=== PATIENT | female | born 1945 | race Hispanic/Latino ===

== ENCOUNTER 2018-04-06 03:31 | Inpatient (IN) | payer MEDICARE, OTHER ==
[~2018-04-06] VITALS: Ht 160 cm; Wt 65.8 kg
[2018-04-06] VITALS (7 sets, daily range): BP systolic 103–127; BP diastolic 54–59
[~2018-04-06 03:31] MED LIST: ASPIR-LOW81 MG PO; ENALAPRIL MALEA10 MG PO; GLUCOPHAGE XL500 MG PO; LEVOTHYROXINE88 MCG PO; MELOXICAM15 MG PO; TRIAMCINOLONE A15 G1; VASOTEC5 MG PO; Z.0.GLIPIZIDE5 MG PO; Z.0.LEVOTHROID75 MCG PO; Z.0.SIMVASTATIN10 MG PO; [UNRECOGNIZED DRUG - OTHER]
[2018-04-06] MEDS ORDERED: ACETAMINOPHEN 1000 MG/100 ML IV STA (03:48)
[2018-04-06] MEDS ORDERED: ASPIRIN 81 MG CHEW TAB PO ONE (04:00)
[2018-04-06] MEDS ORDERED: SODIUM CHLORIDE 0.9% 1000ML 1,000 ML IV ONE (04:00)
[2018-04-06 04:13] LABS: BASOPHILS % 0.1 % (0.0-1.0); EOSINOPHILS % 0.1 % (0.0-6.0); HEMATOCRIT 42.6 % (34.2-44.1); HEMOGLOBIN 14.5 g/dL (12.0-16.0); LYMPHOCYTES # (AUTO) 0.8 (1.0-3.2); LYMPHOCYTES % 9.2 % (18.0-39.1); MEAN CORPUSCULAR HEMOGLOBIN 29.1 pg (28-32); MEAN CORPUSCULAR VOLUME 85.5 fL (81-99); MONOCYTES # (AUTO) 0.2 (0.2-0.8); MONOCYTES % 2.7 % (4.4-11.3); NEUTROPHILS # (AUTO) 7.2 (2.1-6.9); NEUTROPHILS % 87.4 % (38.7-80.0); PLATELET COUNT 234 x10e3/uL (140-360); RED BLOOD COUNT 4.98 x10e6/uL (3.6-5.1); RED CELL DISTRIBUTION WIDTH 13.6 % (11.7-14.4)
[2018-04-06] MEDS ORDERED: ATORVASTATIN CA20 MG PO (04:32)
[2018-04-06] MEDS ORDERED: JANUVIA25 MG PO (04:32)
[2018-04-06 04:35] LABS: ALBUMIN 3.9 g/dL (3.5-5.0); ALBUMIN/GLOBULIN RATIO 0.9 (0.8-2.0); ANION GAP 19.5 mmol/L (8-16); CALCIUM 9.2 mg/dL (8.4-10.2); CREATININE, SERUM 0.93 mg/dL (0.57-1.11); POTASSIUM 3.5 mmol/L (3.5-5.1)
[2018-04-06] MEDS ORDERED: AMBROXOL PO (04:35)
[2018-04-06] MEDS ORDERED: BUSCAPINA PO (04:35)
[2018-04-06 04:43] LABS: CREATINE KINASE MB 1.8 ng/mL (0-5.0)
[2018-04-06] MEDS ORDERED: SODIUM CHLORIDE 0.9% 50ML 50 ML ONE (05:17)
[2018-04-06] MEDS ORDERED: IOPAMIDOL 370 MG/ML 200 ML INFUS..BTL INJ ONE (05:18)
[2018-04-06] MEDS ORDERED: ONDANSETRON HCL INJ 2MG/ML 2ML 2 MG/ML VIAL IV STA (05:29)
[2018-04-06] MEDS ORDERED: ONDANSETRON HCL INJ 2MG/ML 2ML 2 MG/ML VIAL ONE (05:29)
--- NOTE | 2018-04-06 06:24 | Diagnostic Imaging Report ---
EXAM: CT Abdomen and Pelvis WITH contrast INDICATION: Pain COMPARISON: None. TECHNIQUE: Abdomen and Pelvis was scanned utilizing a multidetector helical scanner after administration of IV contrast. Coronal and sagittal reformations were obtained. IV CONTRAST: 100 mL Isovue-370 COMPLICATIONS: None RADIATION DOSE: Total DLP:447 mGy*cm Estimated effective dose: (DLP x 0.015 x size factor) mSv CTDIvol has been reviewed. It is below the limits set by the Radiation Protocol Committee (RPC). Appropriate CT dose reduction techniques were utilized. FINDINGS: Abdomen: Lung Bases: Atelectasis. Solid Organs: Cholecystectomy clips. Dilated common duct up to 17 mm only slightly more prominent than 02/22/2011 study. Solid organs otherwise unremarkable. Upper GI Tract: Small hiatal hernia. Vascularity: Mild aortic vascular calcifications with no aneurysm in the aorta. Lymph Nodes: No suspicious adenopathy. Other: None. Pelvis: Bladder: Unremarkable. Other: Uterus absent. Colon: Extensive diverticulosis sigmoid colon with mild wall thickening. Bones: Degenerative changes spine. IMPRESSION: 1. Significant diverticulosis sigmoid colon. Areas of wall thickening may represent chronic inflammation with mild superimposed acute diverticulitis possible. 2. Prominent common duct statistically reservoir phenomenon and. Slightly more conspicuous than 2011 exam. Clinical/laboratory correlation for biliary obstruction recommended. Signed by: Dr. Magen Farmer MD on 04/06/2018 6:21 AM
--- NOTE | 2018-04-06 06:50 | NUR ---
ASSUMED CARE AT THIS TIME. PATIENT AWAKE AND ALERT SITTING IN BED. RESP EVEN AND UNLABORED. SKIN WARM AND DRY. NO SIGNS OF ACUTE DISTRESS NOTED AT THIS TIME. DENIES ANY C/O AT THIS TIME.
[2018-04-06 07:06] LABS: BILIRUBIN,URINE NEGATIVE (NEGATIVE); CLARITY,URINE CLEAR (CLEAR); COLOR,URINE YELLOW (YELLOW); KETONES,URINE NEGATIVE (NEGATIVE); LEUKOCYTE ESTERASE ,URINE NEGATIVE (NEGATIVE); NITRITE,URINE NEGATIVE (NEGATIVE); PROTEIN,URINE DIPSTICK NEGATIVE (NEGATIVE); URINE UROBILINOGEN 1 mg/dL (0.2 - 1)
[2018-04-06 07:07] LABS: BACTERIA,URINE FEW /HPF; EPITHELIAL CELLS,URINE FEW /LPF
[2018-04-06] MEDS ORDERED: DEXTROSE 50% SYRINGE 50 ML IV PRN (07:15)
[2018-04-06] MEDS ORDERED: ONDANSETRON HCL INJ 2MG/ML 2ML 2 MG/ML VIAL IV PRN (07:15)
[2018-04-06] MEDS ORDERED: HYDROMORPHONE 1MG/1ML INJ IV PRN (07:15)
[2018-04-06] MEDS ORDERED: METRONIDAZOLE 500MG/NS 100ML 100 ML IV SCH (07:15)
--- OUTSIDE RECORDS SUMMARY | 2018-04-06 07:19 | XMS REPORT ---
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 Allergies, Adverse Reactions, Alerts This patient has no known allergies or adverse reactions. Medications This patient has no known medications. Results Test Description Test Time Test Comments Text Results Atomic Results Result Comments CT ABDOMEN/PELVIS W 2018-04-06 06:18:00 [place] [id number] Patient Name: RENE BONILLA MR #: [id number] : 1945 Age/Sex: 72/F Req #: [id number] Adm Physician: Ordered by: ERENDIRA CODY MD Report #: [id number] Location: ER Room/Bed: Procedure: [id number] CT/CT ABDOMEN/PELVIS W Exam Date: Exam Time: REPORT STATUS: Signed EXAM: CT Abdomen and Pelvis WITH contrast INDICATION: Pain COMPARISON: None. TECHNIQUE: Abdomen and Pelvis was scanned utilizing a multidetector helical scanner after administration of IV contrast. Coronal and sagittal reformations were obtained. IV CONTRAST: 100 mL Isovue- 370 COMPLICATIONS: None RADIATION DOSE: Total DLP:447 mGy*cm Estimated effective dose: (DLP x 0.015 x size factor) mSv CTDIvol has been reviewed. It is below the limits set by the Radiation Protocol Committee (RPC). Appropriate CT dose reduction techniques were utilized. FINDINGS: Abdomen: Lung Bases: Atelectasis. Solid Organs: Cholecystectomy clips. Dilated common duct up to 17 mm only slightly more prominent than 02/22/2011 study. Solid organs otherwise unremarkable. Upper GI Tract: Small hiatal hernia. Vascularity: Mild aortic vascular calcifications with no aneurysm in the aorta. Lymph Nodes: No suspicious adenopathy. Other: None. Pelvis: Bladder: Unremarkable. Other: Uterus absent. Colon: Extensive diverticulosis sigmoid colon with mild wall thickening. Bones: Degenerative changes spine. IMPRESSION: 1. Significant diverticulosis sigmoid colon. Areas of wall thickening may represent chronic inflammation with mild superimposed acute diverticulitis possible. 2. Prominent common duct statistically reservoir phenomenon and. Slightly more conspicuous than 2011 exam. Clinical/laboratory correlation for biliary obstruction recommended. Signed by: Dr. Magen Jeronimo MD on 04/06/2018 6:21 AM Dictated By: MAGEN JERONIMO MD 0 Transcribed By: RIAZ on 04/06/18620 COPY TO: ERENDIRA CODY MD
[2018-04-06] MEDS ORDERED: INSULIN REGULAR, HUMAN 100 UNIT/1 ML 3ML VIAL SQ SCH (07:30)
[2018-04-06] MEDS: PIPER-TAZ 3.375 GM / NS 50ML IV SCH ×3 (07:50→22:01)
--- NOTE | 2018-04-06 08:01 | NUR ---
DR HURLEY AT BEDSIDE FOR PATIENT EVAL AND DISCUSSING THE CURRENT PLAN OF CARE WITH PATIENT AND FAMILY,VERBALIZED UNDERSTANDING. NO SIGNS OF ACUTE DISTRESS NOTED AT THIS TIME.
--- NOTE | 2018-04-06 08:13 | NUR ---
RCD PT FROM ER BY STRETCHER PT IS ALERT AND ORIENTED VITALS CHECKED PT RESTING ON BED NO SIGNS OF ANY DISTRESS NOTED ADMISSION ASSESSMENT AND HISTORY AND FAMILY HISTORY DONE NO C/O PAIN ,FEVER [address] RACHEL CARMONA PATENT FAMILY AT BED SIDE INSTRUCTED PT AND FAMILY REGARDING HOSPITAL POLICY AND ROUTINE BED LOW AND LOCKED CALL LIGHT IN REACH
[2018-04-06] MEDS: SODIUM CHLORIDE 0.9% 1000ML 1,000 ML IV SCH ×2 (08:15→13:48)
--- NOTE | 2018-04-06 09:26 | Consultation ---
DATE OF CONSULTATION: April 06, 2018 HISTORY OF PRESENT ILLNESS: This is a 72-year-old lady who has history of diabetes and hypertension, presented to the hospital because of abdominal pain, nausea, and vomiting beginning yesterday. The patient denies any bleeding along with this problem. Her workup revealed that she has pancreatitis with amylase of 266 and lipase of 87. Her liver enzymes were also elevated with bilirubin 1.3, AST 456, and ALT of 213. She had cholecystectomy long time ago, and she had a CAT scan of the abdomen and pelvis last night on admission, which showed diverticulosis of the sigmoid colon and also dilated bile duct up to about 17 mm which is more prominent as compared to way back in 11/2010. However, CAT scan did not show any evidence of pancreatitis. Her other medical problem is significant for history of diabetes and also history of hypertension and hypercholesterolemia. CURRENT MEDICATIONS AT HOME: Including , Vasotec, glipizide, levothyroxine, metformin, and Januvia. ALLERGIES: NONE. SOCIAL HISTORY: No alcohol abuse. FAMILY HISTORY: Noncontributory. REVIEW OF SYSTEMS: Denies any chest pain or shortness of breath. Denies any dysphagia or odynophagia. Denies any dysuria or hematuria. Again, no syncopal episode except complaint of some headache. PHYSICAL EXAMINATION: GENERAL: Patient is awake, lying in bed, appears to be stable and not in any acute distress at this point. VITAL SIGNS: Afebrile currently with normal vital signs. HEAD, EYES, EARS, NOSE, AND THROAT: Normocephalic and atraumatic. Sclerae are anicteric. NECK: Supple. HEART: Sounds regular. LUNGS: Clear. ABDOMEN: Soft. No distention at this point. Tenderness mainly in the epigastric area. There is no rebound or mass. EXTREMITIES: There is no clubbing. LAB VALUES: CBC was okay and chemistry as mentioned before, BUN is 21, creatinine of 0.93. Bilirubin 1.3, AST 456, ALT of 213, alk phos is 186, amylase 266, lipase is 687. IMPRESSION 1. Acute pancreatitis, suspect the possibility of common bile duct stones. 2. History of diabetes. 3. History of hypertension. RECOMMENDATION: To keep n.p.o. at this point. Obtain an MRCP and we will probably proceed with ERCP for further evaluation after the pancreatitis resolves, possibly tomorrow. Follow labs. Job#: [id number] TY cc:MD DICK HERNANDEZ MD
[2018-04-06] MEDS ORDERED: MORPHINE SULFATE INJ 4 MG/ML INJ 1ML IV PRN (09:45)
[2018-04-06] MEDS ORDERED: INSULIN GLARGINE 100 UNITS/ML VIAL SQ NR (10:00)
[2018-04-06] MEDS: ACETAMINOPHEN 325 MG TAB PO PRN ×3 (10:07→20:53)
--- NOTE | 2018-04-06 11:06 | History and Physical ---
PRIMARY CARE PROVIDER: Dr. John Argueta. CONSULTANTS: 1. Dr. Dimitri Sandoval. 2. Dr. J Luis Hdz. CHIEF COMPLAINT: One to two days of abdominal pain, nausea, vomiting, and diarrhea. HISTORY: Patient is a 72-year-old female with previous cholecystectomy, who came to the hospital because of increasing abdominal pain, nausea and vomiting associated with diarrhea profoundly for the past 24 to 48 hours. Patient came to the hospital. She is not in any distress. WBC was 8.22. Chemistry panel, sodium was 131 and amylase and lipase elevated at 256 and 687 respectively. Her liver enzymes also elevated with total bilirubin of 1.3, AST is 456, ALT is 213. Blood pressure was stable at systolic 146/72. She does have a fever of 101, pulse rate elevated at 126. The patient is otherwise stable. She has been dehydrated. She is not in any distress. Consultation with Dr. Sandoval and Dr. Hdz obtained. The patient did not have any sick exposure and did not have any unusual diet or any traveling previously. The patient did not recall anything unusual. No loss of consciousness. No fall. PAST MEDICAL HISTORY: Diabetes type 2 on oral hypoglycemic medication, hypertension, dyslipidemia, hypothyroidism. PAST SURGICAL HISTORY: Cholecystectomy. SOCIAL HISTORY: Patient does not smoke or use alcohol. No recreational drugs. ALLERGIES: PHENAZOPYRIDINE. HOME MEDICATIONS: Lipitor, enalapril, glipizide, levothyroxine, metformin, and Januvia. REVIEW OF SYSTEMS: As mentioned above. PHYSICAL EXAMINATION VITAL SIGNS: Temperature is 100, blood pressure 146/72, pulse rate is 126, respirations 17. GENERAL: The patient seems comfortable. She is not in any distress. HEENT: Normocephalic, atraumatic. Sclerae anicteric. NECK: Supple grossly. PULMONARY: Diminished breath sounds bilaterally without any wheezing or rales. CARDIOVASCULAR: S1, S2. Tachycardia. No gross murmur, gallop, or rub. ABDOMEN: Soft, non-distention, nontender. No guarding. Positive bowel sounds. EXTREMITIES: No cyanosis, edema or clubbing. NEUROLOGIC: There is no focal deficit. LABORATORY: Sodium 131, potassium 3.5, chloride 93, bicarb 22, BUN is 21, creatinine 0.9. Glucose is 283. Total bilirubin is 1.3, AST 456, ALT is 213, alkaline phosphatase is still 186. Amylase is 206, lipase is 687 with albumin of 3.9. Total protein is 8.1. Troponin is 0.02. WBC is 8.2, hemoglobin 14.5, hematocrit 42.6 and platelets 234,000. Urinalysis. Glucose 1+, blood is trace, leukocyte esterase negative, bacteria is few. IMAGING: Abdominal and pelvic CT scan that was done with contrast. Findings as follows: Significant diverticulosis in sigmoid colon. Areas of wall thickening may represent chronic inflammation and mild superimposed acute diverticulitis possible. Prominent common bile duct specifically reservoir phenomenon and slightly more conspicuous than 2011 exam. Recommendation for further tests. IMPRESSION 1. Sepsis without shock. 2. Acute hepatitis, most likely nonviral. 3. Acute gastroenteritis may contribute to the above. 4. Acute mild diverticulitis as per CT scan. 5. Fever, dehydration, hyponatremia secondary to nausea, vomiting and dehydration. 6. Dilated common bile duct, etiology unclear, further workup needed. PLAN 1. Covering antibiotics including Zosyn and Flagyl initiated already. 2. Consult consultants as mentioned. 3. IV fluid. 4. Antiemetic. 5. MRCP. 6. Blood culture. 7. We will repeat lab work. Currently, the patient is on IV fluid at 150 mL normal saline per hour. We will watch the patient's blood pressure. 8. We will place the patient on insulin sliding scale coverage. Hold off on some of the patient's home medications at this time. P.r.n. blood pressure medication. We will follow up on the recommendation from the consultants. Job#: [id number] TY
--- NOTE | 2018-04-06 11:30 | NUR ---
PT GOING FOR ERCP ON TOMORROW CONSENT SIGNED BY PATIENT AND NOTIFIED THE MANAGER ANIMATION TO THE PROCEDURE
[2018-04-06] MEDS: INSULIN REGULAR, HUMAN 100 UNIT/1 ML 3ML VIAL SQ SCH ×2 (12:00→17:28)
--- NOTE | 2018-04-06 12:28 | NUR ---
PT WENT FOR PROCEDURE IN SAFE CONDITION
[2018-04-06] MEDS: METRONIDAZOLE 500MG/NS 100ML 100 ML IV SCH ×2 (14:00→20:52)
--- NOTE | 2018-04-06 14:07 | Diagnostic Imaging Report ---
EXAM: Magnetic Resonance Cholangiopancreatography (M.R.C.P.) INDICATION: ^EVAL FOR CBD OBSTRUCTION COMPARISON: CT abdomen and pelvis 04/06/2018. 02/22/2011. TECHNIQUE: Multiplanar, multisequence MRCP was performed, with sequences including coronal turbo spin-echo T1-weighted scans, [facility] MRCP scans, coronal spin, coronal MPR 2, SMRCP 3D HR, [facility] MRCP PIZARRO. IV Contrast: None Oral Contrast: None Medications: None COMPLICATIONS: None FINDINGS: LOWER THORAX: Unremarkable. HEPATOBILIARY: No focal hepatic lesions. Common bile duct is dilated measuring 1.5 cm in diameter. This gradually tapers to the pancreatic head. There is however an abrupt narrowing near the ampulla of Vater. GALLBLADDER: There are blooming artifacts at the gallbladder fossa, consistent with cholecystectomy clips. SPLEEN: No splenomegaly. PANCREAS: No focal masses or ductal dilatation. ADRENALS: No adrenal nodules KIDNEYS/URETERS: No hydronephrosis. No cystic or solid mass lesions. No stones. GI TRACT: No abnormal distention, wall thickening, or evidence of bowel obstruction. LYMPH NODES: No lymphadenopathy. VESSELS: Unremarkable. PERITONEUM / RETROPERITONEUM: No free air or fluid. BONES: Unremarkable. SOFT TISSUES: Unremarkable. IMPRESSION: Common bile duct dilatation up to 1.5 cm in diameter. There is mild focal abrupt narrowing at the ampulla of Vater. Recommend endoscopy. Signed by: Dr. Live Mosley M.D. on 04/06/2018 2:04 PM
--- NOTE | 2018-04-06 19:12 | NUR ---
PT RESTING ON BED BED SIDE REPORT GIVEN TO ONCOMING NURSE
--- NOTE | 2018-04-06 19:56 | NUR ---
PT IS RESTING IN BED WITH FAMILY AT BEDSIDE. NO RESPIRATORY DISTRESS NOTED. BED IN THE LOWEST POSITION, LOCKED, AND CALL LIGHT WITHIN REACH. WILL CONTINUE TO MONITOR.
[2018-04-06] MEDS: INSULIN GLARGINE 100 UNITS/ML VIAL SQ SCH (20:52)
[2018-04-07] VITALS (8 sets, daily range): BP systolic 96–151; BP diastolic 50–67
[2018-04-07] MEDS: SODIUM CHLORIDE 0.9% 1000ML 1,000 ML IV SCH ×3 (01:32→10:00)
[2018-04-07 04:59] LABS: BASOPHILS % 0.2 % (0.0-1.0); EOSINOPHILS % 0.1 % (0.0-6.0); HEMATOCRIT 34.4 % (34.2-44.1); HEMOGLOBIN 11.5 g/dL (12.0-16.0); LYMPHOCYTES # (AUTO) 0.5 (1.0-3.2); LYMPHOCYTES % 5.5 % (18.0-39.1); MEAN CORPUSCULAR HGB CONC 33.4 g/dL (31-35); MEAN CORPUSCULAR VOLUME 86.9 fL (81-99); MONOCYTES # (AUTO) 0.7 (0.2-0.8); MONOCYTES % 7.7 % (4.4-11.3); NEUTROPHILS # (AUTO) 7.4 (2.1-6.9); PLATELET COUNT 160 x10e3/uL (140-360); RED BLOOD COUNT 3.96 x10e6/uL (3.6-5.1)
[2018-04-07] MEDS: PIPER-TAZ 3.375 GM / NS 50ML IV SCH ×3 (05:11→22:30)
[2018-04-07] MEDS: LEVOTHYROXINE SODIUM 88 MCG TAB PO SCH ×2 (05:43→06:05)
[2018-04-07] MEDS: METRONIDAZOLE 500MG/NS 100ML 100 ML IV SCH ×3 (05:43→22:00)
[2018-04-07] MEDS: INSULIN REGULAR, HUMAN 100 UNIT/1 ML 3ML VIAL SQ SCH ×4 (06:00→18:30)
[2018-04-07] MEDS: ACETAMINOPHEN 325 MG TAB PO PRN (06:01)
[2018-04-07 06:55] LABS: ALANINE AMINOTRANSFERASE 292 IU/L (0-55); ALBUMIN 2.6 g/dL (3.5-5.0); ALBUMIN/GLOBULIN RATIO 0.8 (0.8-2.0); ALKALINE PHOSPHATASE 110 IU/L (40-150); AMYLASE 55 U/L (25-125); ANION GAP 13.2 mmol/L (8-16); BLOOD UREA NITROGEN 11 mg/dL (7-26); BUN/CREATININE RATIO 15 (6-25); CALCIUM 7.6 mg/dL (8.4-10.2); CARBON DIOXIDE 21 mmol/L (22-29); CHLORIDE 106 mmol/L (98-107); CREATININE, SERUM 0.75 mg/dL (0.57-1.11); EST GLOMERULAR FILTRATION RATE > 60 ML/MIN (60-); GLUCOSE 120 mg/dL (74-118); LIPASE 20 U/L (8-78); POTASSIUM 3.2 mmol/L (3.5-5.1); SODIUM 137 mmol/L (136-145)
--- NOTE | 2018-04-07 07:05 | NUR ---
Received patient mid fowlers position, side rails upx2, call light within reach, family at bedside. AAOX3 to time, person, place.Respirations even and unlabored. Denies pain. Instructed patient to use call light for assistance. Voiced understanding.
[2018-04-07 07:12] LABS: LYMPHOCYTES % (MANUAL) 6 % (19-48); MONOCYTES % (MANUAL) 8 % (3.4-9.0); NEUTROPHILS % (MANUAL) 86 % (40-74); NUCLEATED RED BLOOD CELLS 1; RBC MORPHOLOGY COMMENT NORMAL
[2018-04-07 07:13] LABS: PLATELET ESTIMATE ADEQUATE; PLATELET MORPHOLOGY COMMENT NORMAL
--- NOTE | 2018-04-07 08:05 | NUR ---
aware of potassium 3.2. See orders
[2018-04-07] MEDS ORDERED: POTASSIUM CHLORIDE 20MEQ/100ML 200 ML IV ONE (08:30)
[2018-04-07] MEDS ORDERED: IOPAMIDOL 610MG/1ML 300 MG/ML VIAL IV ONE (13:17)
--- NOTE | 2018-04-07 15:42 | NUR ---
Attempted to see pt. Pt out of room at this time for ERCP. Will follow up at a later time.
[2018-04-07] MEDS ORDERED: GLUCAGON FOR INJ 1 MG VIAL ONE (18:24)
[2018-04-07] MEDS ORDERED: PROPOFOL IV EMULSION 10 MG/ML 50 ML VIAL ONE (18:24)
[2018-04-07] MEDS ORDERED: HYOSCYAMINE SULFATE 0.5 MG/ML INJ ONE (18:24)
[2018-04-07] MEDS ORDERED: FENTANYL CITRATE/PF 100MCG/2 ML INJ ONE (18:52)
[2018-04-07] MEDS ORDERED: MIDAZOLAM HCL 2 MG/2 ML VIAL ONE (18:52)
--- NOTE | 2018-04-07 19:20 | NUR ---
Bedside rounds completed with morning nurse. Pt lying in bed HOB 45 degrees. Alert to name, place, time, and situation. Denies pain at this time. No acute distress noted. Family at bedside. Call miranda within reach. Bed low and locked. Will continue to monitor.
--- NOTE | 2018-04-07 19:24 | NUR ---
Report given to oncoming nurse of patients status. No s/s of acute distress noted.
[2018-04-07] MEDS: INSULIN GLARGINE 100 UNITS/ML VIAL SQ SCH (21:45)
[2018-04-08] VITALS (7 sets, daily range): BP systolic 131–155; BP diastolic 60–69
[2018-04-08] MEDS: SODIUM CHLORIDE 0.9% 1000ML 1,000 ML IV SCH
[2018-04-08] MEDS: ACETAMINOPHEN 325 MG TAB PO PRN ×3 (01:08→17:00)
[2018-04-08 05:00] LABS: BASOPHILS % 0.2 % (0.0-1.0); EOSINOPHILS # (AUTO) 0.1 (0.0-0.4); EOSINOPHILS % 2.6 % (0.0-6.0); HEMATOCRIT 28.5 % (34.2-44.1); HEMOGLOBIN 9.4 g/dL (12.0-16.0); LYMPHOCYTES # (AUTO) 0.7 (1.0-3.2); LYMPHOCYTES % 15.1 % (18.0-39.1); MEAN CORPUSCULAR HEMOGLOBIN 28.1 pg (28-32); MEAN CORPUSCULAR VOLUME 85.3 fL (81-99); MONOCYTES # (AUTO) 0.4 (0.2-0.8); NEUTROPHILS # (AUTO) 3.4 (2.1-6.9); NEUTROPHILS % 72.5 % (38.7-80.0); PLATELET COUNT 135 x10e3/uL (140-360); RED BLOOD COUNT 3.34 x10e6/uL (3.6-5.1); RED CELL DISTRIBUTION WIDTH 14.3 % (11.7-14.4)
[2018-04-08] MEDS: PIPER-TAZ 3.375 GM / NS 50ML IV SCH ×3 (05:20→22:30)
[2018-04-08] MEDS: INSULIN REGULAR, HUMAN 100 UNIT/1 ML 3ML VIAL SQ SCH ×4 (06:00→18:00)
[2018-04-08] MEDS: METRONIDAZOLE 500MG/NS 100ML 100 ML IV SCH ×3 (06:43→22:00)
[2018-04-08] MEDS: LEVOTHYROXINE SODIUM 88 MCG TAB PO SCH (06:47)
[2018-04-08 07:06] LABS: ALANINE AMINOTRANSFERASE 235 IU/L (0-55); ALBUMIN 2.8 g/dL (3.5-5.0); ALBUMIN/GLOBULIN RATIO 0.7 (0.8-2.0); ALKALINE PHOSPHATASE 109 IU/L (40-150); BLOOD UREA NITROGEN 8 mg/dL (7-26); BUN/CREATININE RATIO 11 (6-25); CALCIUM 8.3 mg/dL (8.4-10.2); CARBON DIOXIDE 22 mmol/L (22-29); CHLORIDE 107 mmol/L (98-107); CREATININE, SERUM 0.74 mg/dL (0.57-1.11); EST GLOMERULAR FILTRATION RATE > 60 ML/MIN (60-); GLUCOSE 104 mg/dL (74-118); SODIUM 137 mmol/L (136-145)
[2018-04-08 07:23] LABS: ALBUMIN 2.8 g/dL (3.5-5.0); BILIRUBIN,DIRECT 1.2 mg/dL (0.0-0.5)
--- NOTE | 2018-04-08 15:08 | NUR ---
Nutrition Screen Note RD Recommendation for Physician: -Rec adding ADA to GI soft diet as medically appropriate Plan of Care: RD following, monitoring for tolerance and adequacy Nutrition reason for involvement: Diagnosis Primary Diagnose(s): Acute pancreatitis, suspect the possibility of common bile duct stones. PMH: Diabetes type 2 on oral hypoglycemic medication, hypertension, dyslipidemia, hypothyroidism. Ht: 63in Wt: 145lb BMI: 25.7kg/m2 IBW: 115lb RD Assessment: (04/08) Chart reviewed. Labs and meds reviewed. 72yo F, who was admitted for abdominal pain, nausea, vomiting and diarrhea. Pt is currently on IV abx. Visited pt in the room. Pt tolerated GI soft diet for lunch today without any nausea or vomiting. LBM 04/08, diarrhea per pt. (RN was aware) Pt also reported throat irritation after endoscopy. No chewing difficulty noted. Pt denied any weight loss [employer]. Will continue to monitor and follow. Current Diet: GI soft diet Malnutrition Evaluation (04/08) The patient does not meet criteria for a specified degree of malnutrition at this time. Will re-evaluate at follow-up as appropriate. Diet Education Needs Assessment: Diet education not indicated. Nutrition Care Level: low Signed: Annel Cortes, MS, RD, LD
--- NOTE | 2018-04-08 19:28 | NUR ---
Walking rounds done, bedside report given. NO s/s of acute distress noted.
--- NOTE | 2018-04-08 19:28 | NUR ---
Patient received lying in bed. Family member at bedside. AAO x 3. No complaints of pain. Respirations even and non-labored. Bed locked and in lowest position. Bed rails up x 2. Patient instructed to call for assistance when needed. Call light within reach.
[2018-04-08] MEDS: INSULIN GLARGINE 100 UNITS/ML VIAL SQ SCH (21:59)
[2018-04-09] VITALS: BP 162/70
[2018-04-09] MEDS: ACETAMINOPHEN 325 MG TAB PO PRN (00:28)
[2018-04-09 04:00] VITALS: BP 153/69
[2018-04-09] MEDS: INSULIN REGULAR, HUMAN 100 UNIT/1 ML 3ML VIAL SQ SCH ×2 (04:30→07:00)
[2018-04-09 04:47] LABS: BASOPHILS % 0.6 % (0.0-1.0); EOSINOPHILS # (AUTO) 0.2 (0.0-0.4); EOSINOPHILS % 4.5 % (0.0-6.0); HEMATOCRIT 38.2 % (34.2-44.1); HEMOGLOBIN 12.8 g/dL (12.0-16.0); LYMPHOCYTES # (AUTO) 1.4 (1.0-3.2); MEAN CORPUSCULAR HEMOGLOBIN 28.3 pg (28-32); MEAN CORPUSCULAR HGB CONC 33.5 g/dL (31-35); MEAN CORPUSCULAR VOLUME 84.5 fL (81-99); MONOCYTES # (AUTO) 0.4 (0.2-0.8); MONOCYTES % 7.9 % (4.4-11.3); NEUTROPHILS % 59.6 % (38.7-80.0); PLATELET COUNT 196 x10e3/uL (140-360); RED BLOOD COUNT 4.52 x10e6/uL (3.6-5.1); RED CELL DISTRIBUTION WIDTH 14.1 % (11.7-14.4)
[2018-04-09 05:12] LABS: ALANINE AMINOTRANSFERASE 180 IU/L (0-55); ALBUMIN 2.8 g/dL (3.5-5.0); ALBUMIN/GLOBULIN RATIO 0.7 (0.8-2.0); ALKALINE PHOSPHATASE 114 IU/L (40-150); ANION GAP 11.7 mmol/L (8-16); BLOOD UREA NITROGEN 9 mg/dL (7-26); BUN/CREATININE RATIO 12 (6-25); CARBON DIOXIDE 24 mmol/L (22-29); CHLORIDE 104 mmol/L (98-107); CREATININE, SERUM 0.77 mg/dL (0.57-1.11); EST GLOMERULAR FILTRATION RATE > 60 ML/MIN (60-); GLUCOSE 137 mg/dL (74-118); POTASSIUM 3.7 mmol/L (3.5-5.1); SODIUM 136 mmol/L (136-145)
[2018-04-09] MEDS: PIPER-TAZ 3.375 GM / NS 50ML IV SCH (05:59)
[2018-04-09] MEDS: LEVOTHYROXINE SODIUM 88 MCG TAB PO SCH (05:59)
[2018-04-09] MEDS: METRONIDAZOLE 500MG/NS 100ML 100 ML IV SCH (06:48)
[2018-04-09 07:41] VITALS: BP 160/83
[2018-04-09 08:00] VITALS: BP 160/83
[2018-04-09] MEDS ORDERED: NIFEDIPINE CR 30 MG TAB PO ONE (10:00)
--- NOTE | 2018-04-09 10:00 | NUR ---
CASE MANAGEMENT INITIAL ASSESSMENT Service Greeter to bedside to discuss plan of care with patient/family. CM/SW role and care transitions discussed. Anticipated discharge plan discussed along with duration of care. CM/SW discussed patients right to make decisions in care. CM/SW work hours given. Patient lives: with her Manny Admit/Transfer: thru ED Hospital/ER visits since last admit: no recent hospitalization; last hospitalization 2 years ago POA/Emergency contact: Manny White [phone] Current/Previous Home Health: none PCP/Follow-up Care: Dr. Eliezer Argueta; CM recommended to pt to follow up with PCP within 7 days of discharge Current/Previous DME: none Medications (referring to index hospitalization or the first time you were in the hospital) a. Were changes made in your medications when you were in the hospital on [date of index hospitalization]? n/a b. Did you understand the changes? n/a c. Were you able to obtain your new medications right away? n/a d. Were you able to take your medications like the doctor wanted you to? n/a e. Did the hospital give you an accurate, easy to understand list of medications when you left? n/a Scale of 1-10 how comfortable does patient feel with disease management in outpatient settin Other Services: none Employment Status: retired Areas of Concerns: diverticulitis Referral Needs: none Education Needs: medical management IMM/VALERO given and signed (if applicable): IMM filed in chart. pt was given [place] copy Goal for discharge: home CM/SW left business card at the bedside with contact information. Name and number was also written on the patients whiteboard. Patient verbalized understanding of discussion. CM will follow-up with ongoing discharge and transition of care needs.
--- NOTE | 2018-04-09 10:32 | Discharge Summary ---
CONSULTANTS 1. Dr. J Luis Hdz 2. Dr. Dimitri Sandoval PCP: Dr. John Argueta. FINAL DIAGNOSES 1. Status post sepsis, no shock. 2. Acute hepatitis secondary to acute gastroenteritis associated with fever, dehydration, hyponatremia secondary to nausea and vomiting, and dehydration. 3. Dilated common bile duct with ampulla obstruction status post endoscopic retrograde cholangiopancreatography, unable to cannulate the ampulla secondary to diverticulum. 4. Increase in the pancreatic enzymes, amylase and lipase, secondary to acute gastroenteritis as mentioned above. SUMMARY: The patient is a 72-year-old female who came to the hospital with acute gastroenteritis with abdominal pain and elevation of liver enzymes and pancreatic enzymes. The patient had multiple workups done. She has sign of infection. On admission sodium level was 131. BUN and creatinine were 21 and 0.9. AST was 456. ALT was 213. Alkaline phosphatase was 186. Amylase was 266, and lipase was 687. Imaging tests: The patient underwent MRCP done that showed common bile duct dilatation up to 1.5 cm in diameter. There is mild focal abrupt narrowing at the ampulla of Vater. Subsequently, she underwent MRCP. In the area of the ampulla, a single medium diverticulum was present. The ampulla is located inside the diverticulum. Cannulation was obtained but unable to thread the wire into the bile duct per procedure. Unable to obtain deep cannulation of the bile duct. The minor ampulla was not identified. Opacification of the biliary system was not successful. Opacification of the pancreatic duct was not attempted. 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 The patient is otherwise stable. Her amylase and lipase have now normalized. The liver enzymes are also normalizing. The patient is able to tolerate all her diet. No fever. Patient is otherwise stable. Blood pressure is slightly elevated, and medication will be adjusted. The patient is otherwise stable at this time. Discussed with Dr. J Luis Hdz. The patient is asymptomatic. She will go home today. Follow up with Dr. Hdz in approximately 2 weeks. Medications for home adjusted. Nifedipine ER 30 mg daily will be given. Will continue to monitor her blood pressure. I will stop the metformin for now and continue with other home medications. The patient is otherwise stable. Discharge the patient to follow up with Dr. Hdz. For empiric treatment, will give the patient Augmentin 875 mg twice a day with food. Will give to the patient for 5 days. The patient is otherwise stable and discharged home today. Follow up as instructed. Job#: [id number] KIMMIE
--- NOTE | 2018-04-09 11:05 | NUR ---
PIV REMOVED WITH TIP INTACT. DENIES PAIN AND SOB, NO ACUTE DISTRESS NOTED UPON D/C. PATIENT ESCORTED TO FRONT LOBBY ENTRANCE VIA WHERE AWAITED IN PRIVATE AUTO. PT SAFELY TRANSFERRED INTO AUTO. ALL PERSONAL BELONGINGS, RX AND D/C INSTRUCTIONS IN HAND AT TIME OF D/C.
== END 2018-04-09 11:04 | disposition home or self-care (01) | DRG 871 ==
LOC: ER 03:31 → ERHOLD 07:15 → MED/SURG2 08:54
PROVIDERS: ADMIT Internal Medicine; ATTEND Internal Medicine
PROC: BF101ZZ Fluoroscopy of Bile Ducts using Low Osmolar Contrast (ICD-10-PCS; 2018-04-07)
PROC: 0FJB8ZZ Inspection of Hepatobiliary Duct, Via Natural or Artificial Opening Endoscopic (ICD-10-PCS; principal; 2018-04-07 14:30)
DX: A41.9 Sepsis, unspecified organism (principal); K85.10 Biliary acute pancreatitis without necrosis or infection; K83.1 Obstruction of bile duct; B17.9 Acute viral hepatitis, unspecified; K57.92 Diverticulitis of intestine, part unspecified, without perforation or abscess without bleeding; E87.1 Hypo-osmolality and hyponatremia; K52.9 Noninfective gastroenteritis and colitis, unspecified; E86.0 Dehydration; I10 Essential (primary) hypertension
CPT/HCPCS: 36415; 43260; 74177; 74181; 74328; 76000; 80053; 80076; 81001; 82150; 82550; 82553; 82948; 83690; 84484; 85025; 93005; 96365; 99284; J1610; J1815; J1980; J2250; J2405; J2543; J3480; J7030; Q9967

== ENCOUNTER 2018-04-14 09:06 | Inpatient (IN) | payer MEDICARE ==
[~2018-04-14] VITALS: Ht 160 cm; Wt 71.2 kg
[~2018-04-14 09:06] MED LIST changes: +AMBROXOL PO; +ATORVASTATIN CA20 MG PO; +BUSCAPINA PO; +JANUVIA25 MG PO
[2018-04-14] MEDS ORDERED: HYDROCODONE/APAP 5MG-325MG TAB PO NR (10:15)
[2018-04-14] MEDS ORDERED: MORPHINE SULFATE 2 MG/ML SYR 1ML IV STA (10:50)
--- NOTE | 2018-04-14 11:03 | Diagnostic Imaging Report ---
Examination: Single AP view of the chest. COMPARISON: None. INDICATION: Pain status post fall DISCUSSION: The lungs are well-inflated. No focal airspace consolidation, pleural effusion, or pneumothorax. Cardiomediastinal contour and pulmonary vasculature are within normal limits for portable, AP technique. Atherosclerotic calcification of the aortic arch. No acute osseous abnormalities. Surgical clips project over the right upper quadrant of the abdomen compatible with prior cholecystectomy. IMPRESSION: 1. No acute cardiopulmonary abnormalities. Signed by: Dr. Warren Flores M.D. on 04/14/2018 10:59 AM
--- NOTE | 2018-04-14 11:07 | Diagnostic Imaging Report ---
Exam: Left hip, 2 views, left femur, 2 views History: Fall, pain Comparison: None. Findings: The bones are diffusely osteopenic. There is an acute, markedly comminuted and mildly displaced fracture of the intertrochanteric left femur with extension to the femoral neck. The lesser trochanter is avulsed. The femoral head projects appropriately over the acetabulum. No displaced pelvic fracture. The distal femur is intact. Soft tissues unremarkable. Impression: Acute, comminuted and moderately displaced intertrochanteric left femoral fracture in the setting of diffuse background osteopenia. Signed by: Dr. Warren Flores M.D. on 04/14/2018 11:04 AM
[2018-04-14] MEDS ORDERED: MORPHINE SULFATE INJ 4 MG/ML INJ 1ML IV NR (11:15)
[2018-04-14 11:37] LABS: BASOPHILS % 0.4 % (0.0-1.0); EOSINOPHILS % 0.4 % (0.0-6.0); HEMATOCRIT 41.6 % (34.2-44.1); HEMOGLOBIN 13.9 g/dL (12.0-16.0); LYMPHOCYTES # (AUTO) 1.2 (1.0-3.2); LYMPHOCYTES % 11.1 % (18.0-39.1); MEAN CORPUSCULAR HEMOGLOBIN 28.8 pg (28-32); MEAN CORPUSCULAR HGB CONC 33.4 g/dL (31-35); MEAN CORPUSCULAR VOLUME 86.3 fL (81-99); MONOCYTES # (AUTO) 0.7 (0.2-0.8); MONOCYTES % 6.5 % (4.4-11.3); NEUTROPHILS # (AUTO) 8.3 (2.1-6.9); NEUTROPHILS % 78.6 % (38.7-80.0); PLATELET COUNT 295 x10e3/uL (140-360); RED BLOOD COUNT 4.82 x10e6/uL (3.6-5.1); RED CELL DISTRIBUTION WIDTH 14.5 % (11.7-14.4)
--- NOTE | 2018-04-14 11:50 | Diagnostic Imaging Report ---
History: Fall, pain. Fracture Comparison studies:None Technique: Axial images were obtained from the brain and cervical spine. Coronal and sagittal images reconstructed from the axial data. Intravenous contrast: None Dose modulation, iterative reconstruction, and/or weight based adjustment of the mA/kV was utilized to reduce the radiation dose to as low as reasonably achievable. Findings: Head CT: Scalp/skull: No abnormalities. No fractures, blastic or lytic lesions. Brain sulci: Mildly prominent. Ventricles: Moderately prominent. No hydrocephalus. Extra-axial spaces: No masses. No fluid collections. Parenchyma: Scattered small hypodensities of the periventricular and deep white matter. No masses, hemorrhage, acute or chronic cortical vascular insults. Sellar/suprasellar region: No abnormalities. Craniocervical junction: Patent foramen magnum. No Chiari one malformation. Hypodensity inferior to the left lentiform nucleus, likely related to prominent perivascular space. Cervical spine CT: Fractures: None. Soft tissues: No gross abnormalities. Atlantoaxial articulation: Degenerative changes without acute abnormality. Alignment: Straightening of the cervical lordosis. No scoliosis. Cervicomedullary junction: No abnormalities. Patent foramen magnum. Vertebrae: No infection or neoplasm. Degenerative changes: Disc degeneration with decreased intervertebral space at C5-6. Posterior disc osteophyte complex, bilateral uncinate process hypertrophy at C5-6 results in mild canal stenosis and mild bilateral foraminal narrowing. Incidental findings: Atherosclerotic calcifications of the carotid siphons. 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 Impression: Head CT: 1. No acute abnormality. 2. Mild chronic microvascular ischemic changes of the white matter. 3. Moderate ventriculomegaly out of proportions to the subarachnoid space widening, this may be seen in central volume loss or normal pressure hydrocephalus, clinical correlation recommended. Cervical spine CT: 1. No acute abnormalities. 2. Cannot exclude ligament, spinal cord and or vascular abnormalities on the basis of this examination. Signed by: DR Andrew Cook M.D. on 04/14/2018 11:46 AM
[2018-04-14 12:02] LABS: INR 0.85; PROTHROMBIN TIME 12.4 seconds (11.9-14.5)
[2018-04-14 12:10] LABS: ALANINE AMINOTRANSFERASE 82 IU/L (0-55); ALBUMIN 3.6 g/dL (3.5-5.0); ALBUMIN/GLOBULIN RATIO 0.8 (0.8-2.0); ALKALINE PHOSPHATASE 122 IU/L (40-150); BLOOD UREA NITROGEN 19 mg/dL (7-26); BUN/CREATININE RATIO 22 (6-25); CALCIUM 9.6 mg/dL (8.4-10.2); CARBON DIOXIDE 22 mmol/L (22-29); CHLORIDE 98 mmol/L (98-107); CREATINE KINASE 27 IU/L (29-168); CREATININE, SERUM 0.85 mg/dL (0.57-1.11); EST GLOMERULAR FILTRATION RATE > 60 ML/MIN (60-); GLUCOSE 301 mg/dL (74-118); MAGNESIUM 1.9 MG/DL (1.3-2.1); SODIUM 134 mmol/L (136-145)
[2018-04-14] MEDS ORDERED: DEXTROSE 50% SYRINGE 50 ML IV PRN (12:15)
[2018-04-14 12:40] LABS: CLARITY,URINE CLEAR (CLEAR); COLOR,URINE YELLOW (YELLOW)
[2018-04-14 12:41] LABS: BILIRUBIN,URINE NEGATIVE (NEGATIVE); KETONES,URINE NEGATIVE (NEGATIVE); LEUKOCYTE ESTERASE ,URINE NEGATIVE (NEGATIVE); NITRITE,URINE NEGATIVE (NEGATIVE); PROTEIN,URINE DIPSTICK NEGATIVE (NEGATIVE); URINE UROBILINOGEN 0.2 mg/dL (0.2 - 1)
[2018-04-14 12:43] LABS: EPITHELIAL CELLS,URINE RARE /LPF
[2018-04-14] MEDS: SODIUM CHLORIDE 0.9% 1000ML 1,000 ML IV SCH (12:45)
[2018-04-14] MEDS: ONDANSETRON HCL INJ 2MG/ML 2ML 2 MG/ML VIAL IV PRN ×3 (12:45→21:50)
[2018-04-14] MEDS ORDERED: NIFEDIPINE ER30 MG PO (12:51)
[2018-04-14 13:03] LABS: LYMPHOCYTES % (MANUAL) 13 % (19-48); MONOCYTES % (MANUAL) 8 % (3.4-9.0); NEUTROPHILS % (MANUAL) 76 % (40-74)
[2018-04-14 13:05] LABS: ANISOCYTOSIS MODERATE
[2018-04-14 13:06] LABS: PLATELET ESTIMATE ADEQUATE; PLATELET MORPHOLOGY COMMENT NORMAL; RBC MORPHOLOGY COMMENT NORMAL
[2018-04-14] MEDS: MORPHINE SULFATE INJ 4 MG/ML INJ 1ML IV PRN ×2 (14:40→21:55)
[2018-04-14 17:10] VITALS: BP 113/61
[2018-04-14] MEDS: INSULIN LISPRO 100 UNIT/1 ML 3ML VIAL SQ SCH ×2 (17:11→23:30)
[2018-04-14 18:19] VITALS: BP 113/61
[2018-04-14 18:23] VITALS: BP 113/61
[2018-04-14 20:00] VITALS: BP 114/58
[2018-04-14 20:07] LABS: CREATINE KINASE MB 1.2 ng/mL (0-5.0)
[2018-04-14 20:30] VITALS: BP 114/58
[2018-04-14] MEDS ORDERED: ACETAMINOPHEN 325 MG TAB PO PRN (22:30)
[2018-04-14] MEDS ORDERED: HYDRALAZINE HCL 20 MG/ML VIAL IV PRN (22:30)
[2018-04-15] VITALS: BP 118/57
[2018-04-15] MEDS: SODIUM CHLORIDE 0.9% 1000ML 1,000 ML IV SCH ×4 (00:10→23:23)
[2018-04-15] MEDS: LEVOTHYROXINE SODIUM 88 MCG TAB PO SCH (05:53)
[2018-04-15] MEDS: MORPHINE SULFATE INJ 4 MG/ML INJ 1ML IV PRN ×2 (05:53→14:36)
[2018-04-15] MEDS: ONDANSETRON HCL INJ 2MG/ML 2ML 2 MG/ML VIAL IV PRN (05:53)
[2018-04-15 06:23] LABS: BASOPHILS % 0.3 % (0.0-1.0); EOSINOPHILS # (AUTO) 0.1 (0.0-0.4); EOSINOPHILS % 0.9 % (0.0-6.0); HEMATOCRIT 32.4 % (34.2-44.1); HEMOGLOBIN 10.5 g/dL (12.0-16.0); LYMPHOCYTES # (AUTO) 1.4 (1.0-3.2); LYMPHOCYTES % 18.1 % (18.0-39.1); MEAN CORPUSCULAR HEMOGLOBIN 28.4 pg (28-32); MEAN CORPUSCULAR HGB CONC 32.4 g/dL (31-35); MEAN CORPUSCULAR VOLUME 87.6 fL (81-99); MONOCYTES % 12.7 % (4.4-11.3); NEUTROPHILS # (AUTO) 5.1 (2.1-6.9); NEUTROPHILS % 66.4 % (38.7-80.0); PLATELET COUNT 267 x10e3/uL (140-360); RED CELL DISTRIBUTION WIDTH 14.5 % (11.7-14.4)
[2018-04-15 07:14] LABS: ALANINE AMINOTRANSFERASE 53 IU/L (0-55); ALBUMIN 2.8 g/dL (3.5-5.0); ALBUMIN/GLOBULIN RATIO 0.8 (0.8-2.0); ALKALINE PHOSPHATASE 93 IU/L (40-150); ANION GAP 12.3 mmol/L (8-16); BLOOD UREA NITROGEN 17 mg/dL (7-26); BUN/CREATININE RATIO 23 (6-25); CALCIUM 8.3 mg/dL (8.4-10.2); CARBON DIOXIDE 23 mmol/L (22-29); CHLORIDE 100 mmol/L (98-107); CREATININE, SERUM 0.73 mg/dL (0.57-1.11); EST GLOMERULAR FILTRATION RATE > 60 ML/MIN (60-); GLUCOSE 223 mg/dL (74-118); POTASSIUM 4.3 mmol/L (3.5-5.1); SODIUM 131 mmol/L (136-145)
[2018-04-15 07:25] LABS: CREATINE KINASE MB 1.1 ng/mL (0-5.0)
[2018-04-15 08:14] VITALS: BP 134/64
[2018-04-15] MEDS: INSULIN LISPRO 100 UNIT/1 ML 3ML VIAL SQ SCH ×4 (08:37→21:10)
[2018-04-15 09:28] VITALS: BP 134/64
[2018-04-15] MEDS ORDERED: CEFAZOLIN SOD 2 GM/D5W 50ML 50 ML IV ONE (11:30)
[2018-04-15] MEDS ORDERED: CEFAZOLIN SOD 1 GM/NS 50ML 100 ML IV ONE (11:30)
[2018-04-15 12:09] VITALS: BP 132/58
[2018-04-15] MEDS ORDERED: SUGAMMADEX SODIUM 200 MG/2 ML VIAL IV ONE (12:24)
[2018-04-15] MEDS ORDERED: BACITRACIN 50,000 UNIT VIAL ONE (12:39)
[2018-04-15] MEDS ORDERED: HYDROCODONE/APAP 7.5MG-325MG 1 EA TAB PO PRN (13:30)
[2018-04-15] MEDS ORDERED: PROMETHAZINE HCL (IM) 25 MG/ML VIAL INJ PRN (13:30)
[2018-04-15] MEDS ORDERED: DIPHENHYDRAMINE HCL INJ 50 MG/ML VIAL IM/IV PRN (13:30)
[2018-04-15] MEDS ORDERED: ACETAMINOPHEN 650 MG SUPP PR PRN (13:30)
[2018-04-15] MEDS ORDERED: ONDANSETRON HCL INJ 2MG/ML 2ML 2 MG/ML VIAL IV PRN (13:30)
[2018-04-15] MEDS ORDERED: KETOROLAC TROMETHAMINE 30 MG/ML VIAL IV PRN (13:30)
[2018-04-15] MEDS ORDERED: DOCUSATE SODIUM 100 MG CAP PO PRN (13:30)
--- NOTE | 2018-04-15 13:30 | Consultation ---
DATE OF CONSULTATION: 04/14/2018 CHIEF COMPLAINT: Left hip pain. HISTORY OF PRESENT ILLNESS: The patient is a 72-year-old lady, who ambulates independently. She became dizzy and fell in her bathroom earlier today. She was noted to have isolated left hip pain. She was brought to the hospital by ambulance. She was noted to have a left hip fracture and Orthopedic consultation was requested. The patient's past history is significant for a recent hospitalization in which she was worked out for some abdominal pain and lightheadedness. Her family does not recollect any specific conclusions that were made by her doctors at that time. PAST MEDICAL HISTORY: Hypothyroidism, adult-onset diabetes, and hypertension. PAST SURGICAL HISTORY: Previous surgeries include hysterectomy, cholecystectomy, appendectomy, and removal of an ovarian cyst. MEDICATIONS: Please see medication reconciliation list. ALLERGIES: SHE HAS NO KNOWN DRUG ALLERGIES. SOCIAL HISTORY: She lives at home with her . She ambulates independently. PHYSICAL EXAMINATION: GENERAL: She is awake, alert, and oriented. She is in mild discomfort. EXTREMITIES: Her left lower extremity is shortened and externally rotated. She has pain with any attempted passive range of motion. The outer thigh is soft without bruises or abrasions. Distal neurovascular exam is normal. LABORATORY STUDIES: X-rays show a left proximal femur intertrochanteric/subtrochanteric fracture. IMPRESSION: Left hip fracture. PLAN: The findings and options were discussed with the patient and multiple family members. She was a previous ambulator. The standard of care is surgical stabilization. The preferred choice of treatment would be an intramedullary hip screw. The risks and benefits of the procedure were explained. The recovery was discussed. She states she understands and wishes to proceed with the surgery. We will put this on the schedule for tomorrow. Warren Mcknight MD DR/KATEY /[id number]
[2018-04-15] MEDS ORDERED: ACETAMINOPHEN 1000 MG/100 ML IV PRN (13:45)
[2018-04-15] MEDS ORDERED: CEFAZOLIN SOD 1 GM/NS 50ML 50 ML IV SCH (14:00)
[2018-04-15 16:00] VITALS: BP 121/58
[2018-04-15] MEDS: ASPIRIN 325 MG TAB PO SCH (17:24)
[2018-04-15] MEDS: CELECOXIB 100 MG CAP PO SCH (17:24)
[2018-04-15] MEDS: ACETAMINOPHEN 1000 MG/100 ML IV SCH (17:26)
[2018-04-15] MEDS ORDERED: DEXAMETHASONE SOD PHOS INJ 4 MG/ML VIAL ONE (17:41)
[2018-04-15] MEDS ORDERED: LIDOCAINE HCL 2% JELLY 5 ML TUBE ONE (17:41)
[2018-04-15] MEDS ORDERED: PROPOFOL IV EMULSION 10 MG/ML 20 ML VIAL ONE (17:41)
[2018-04-15] MEDS ORDERED: LIDOCAINE HCL 2% LOCAL INJ 5 ML SDV VIAL INJ ONE (17:41)
[2018-04-15] MEDS ORDERED: DESFLURANE 240 ML BTL INH ONE (17:41)
[2018-04-15] MEDS ORDERED: ACETAMINOPHEN 1000 MG/100 ML IV ONE (17:41)
[2018-04-15] MEDS ORDERED: ROCURONIUM BROMIDE 10 MG/ML 5ML VIAL ONE (17:41)
[2018-04-15] MEDS ORDERED: ONDANSETRON HCL INJ 2MG/ML 2ML 2 MG/ML VIAL ONE (17:41)
[2018-04-15] MEDS ORDERED: FENTANYL CITRATE/PF 100MCG/2 ML INJ ONE (18:07)
[2018-04-15 20:00] VITALS: BP 114/56
[2018-04-15] MEDS: CEFAZOLIN SOD 1 GM/NS 50ML 50 ML IV SCH (20:34)
[2018-04-15] MEDS: HYDROCODONE/APAP 5MG-325MG TAB PO PRN (20:54)
--- NOTE | 2018-04-15 21:56 | Operative Report ---
DATE OF PROCEDURE: 04/15/2018 TELETYPEWRITER OPERATOR: Betito Walter PA-C PREOPERATIVE DIAGNOSIS: Left hip intertrochanteric/subtrochanteric fracture. POSTOPERATIVE DIAGNOSIS: Left hip intertrochanteric/subtrochanteric fracture. PROCEDURE: Placement of intramedullary hip screw, left hip. INDICATIONS: The patient is a 72-year-old lady, who became lightheaded and fell at home. She sustained a left hip fracture. She was previously ambulatory without assistance. We have discussed the findings and options. We planned on a surgical stabilization with an intramedullary hip screw. The risks and benefits have been discussed. She states she understands and wishes to proceed. DESCRIPTION OF PROCEDURE: The patient was brought to the operating room and placed under general anesthetic. She received prophylactic antibiotics in the holding area. Her left lower extremity was prepped and draped in a sterile manner on the fracture table in gentle traction. A C-arm image intensifier had been used to confirm a satisfactory reduction. A small incision was made proximal to the tip of the greater trochanter. A curved awl was used to place a guidepin down the femoral canal. This was checked in the AP and lateral planes. The proximal portion of the hip was overreamed. A 14 mm flexible reamer was advanced all the way down to the knee. There were some endosteal clatter. We elected to use a 13 mm nail. A 13 x 360 mm intramedullary hip screw was then placed. A guidepin was placed into the femoral head. This was checked in the AP and lateral planes. A 95 mm lag screw was placed. The fracture site was gently compressed. A locking screw was advanced inside the nail. Intraoperative x-rays confirmed an anatomic reduction and excellent position of the hardware. The guide system was removed. The wounds were irrigated. The deep fascia was closed with a couple of interrupted 0-Vicryl stitches. The skin was closed with subcuticular 0-Vicryl, Mastisol, and Steri-Strips. Estimated blood loss was less than 50 mL. At the end of the procedure, all needle and sponge counts were correct. Warren Mcknight MD DR/KATEY /[id number]
[2018-04-15] MEDS: ZOLPIDEM TARTRATE 5 MG TAB PO PRN (22:00)
[2018-04-16] VITALS: BP 118/61
[2018-04-16] MEDS: ACETAMINOPHEN 1000 MG/100 ML IV SCH ×3 (00:17→12:54)
[2018-04-16 04:00] VITALS: BP_SYST 115; BP_SYST 124; BP_DIAS 53; BP_DIAS 63
[2018-04-16] MEDS: CEFAZOLIN SOD 1 GM/NS 50ML 50 ML IV SCH ×2 (04:08→12:45)
[2018-04-16] MEDS: HYDROCODONE/APAP 5MG-325MG TAB PO PRN (05:46)
[2018-04-16 06:04] LABS: BASOPHILS % 0.2 % (0.0-1.0); EOSINOPHILS % 0.2 % (0.0-6.0); HEMATOCRIT 28.6 % (34.2-44.1); HEMOGLOBIN 9.5 g/dL (12.0-16.0); LYMPHOCYTES # (AUTO) 1.8 (1.0-3.2); LYMPHOCYTES % 18.8 % (18.0-39.1); MEAN CORPUSCULAR HEMOGLOBIN 29.1 pg (28-32); MEAN CORPUSCULAR HGB CONC 33.2 g/dL (31-35); MEAN CORPUSCULAR VOLUME 87.5 fL (81-99); MONOCYTES # (AUTO) 1.2 (0.2-0.8); MONOCYTES % 12.3 % (4.4-11.3); NEUTROPHILS # (AUTO) 6.5 (2.1-6.9); NEUTROPHILS % 67.6 % (38.7-80.0); PLATELET COUNT 255 x10e3/uL (140-360); RED BLOOD COUNT 3.27 x10e6/uL (3.6-5.1); RED CELL DISTRIBUTION WIDTH 14.5 % (11.7-14.4)
[2018-04-16] MEDS: LEVOTHYROXINE SODIUM 88 MCG TAB PO SCH (06:14)
[2018-04-16 06:36] LABS: ANION GAP 10.5 mmol/L (8-16); BLOOD UREA NITROGEN 16 mg/dL (7-26); BUN/CREATININE RATIO 20 (6-25); CALCIUM 8.5 mg/dL (8.4-10.2); CARBON DIOXIDE 25 mmol/L (22-29); CHLORIDE 102 mmol/L (98-107); CREATININE, SERUM 0.82 mg/dL (0.57-1.11); EST GLOMERULAR FILTRATION RATE > 60 ML/MIN (60-); GLUCOSE 219 mg/dL (74-118); POTASSIUM 4.5 mmol/L (3.5-5.1); SODIUM 133 mmol/L (136-145)
[2018-04-16 08:05] VITALS: BP 110/51
[2018-04-16] MEDS: INSULIN LISPRO 100 UNIT/1 ML 3ML VIAL SQ SCH ×4 (09:46→21:13)
[2018-04-16] MEDS: ASPIRIN 325 MG TAB PO SCH ×2 (09:49→18:12)
[2018-04-16] MEDS: CELECOXIB 100 MG CAP PO SCH ×2 (09:49→18:13)
[2018-04-16] MEDS: SODIUM CHLORIDE 0.9% 1000ML 1,000 ML IV SCH (09:52)
[2018-04-16 12:00] VITALS: BP 173/83
[2018-04-16] MEDS ORDERED: ACETAMINOPHEN 1000 MG/100 ML IV PRN (13:30)
[2018-04-16] MEDS ORDERED: ACETAMINOPHEN 325 MG TAB PO PRN (16:00)
[2018-04-16 16:42] VITALS: BP 110/53
[2018-04-16 19:57] VITALS: BP 110/53
[2018-04-16] MEDS: ZOLPIDEM TARTRATE 5 MG TAB PO PRN (21:04)
[2018-04-17] VITALS (9 sets, daily range): BP systolic 107–141; BP diastolic 50–62
[2018-04-17] MEDS: HYDROCODONE/APAP 5MG-325MG TAB PO PRN ×2 (00:45→10:28)
[2018-04-17] MEDS: LEVOTHYROXINE SODIUM 88 MCG TAB PO SCH (05:53)
[2018-04-17 06:01] LABS: HEMATOCRIT 27.8 % (34.2-44.1)
[2018-04-17] MEDS: INSULIN LISPRO 100 UNIT/1 ML 3ML VIAL SQ SCH ×4 (10:26→21:40)
[2018-04-17] MEDS: IRON-VITAMIN-MINERAL CAPSULE PO SCH ×2 (10:27→17:27)
[2018-04-17] MEDS: CELECOXIB 100 MG CAP PO SCH ×2 (10:27→17:27)
[2018-04-17] MEDS: SENNOSIDES 8.6 MG TAB PO SCH ×2 (10:27→17:27)
[2018-04-17] MEDS: ASPIRIN 325 MG TAB PO SCH ×2 (10:27→17:27)
[2018-04-17] MEDS: ZOLPIDEM TARTRATE 5 MG TAB PO PRN (22:46)
[2018-04-18] VITALS: BP 136/60
[2018-04-18 04:00] VITALS: BP 116/58
[2018-04-18] MEDS: LEVOTHYROXINE SODIUM 88 MCG TAB PO SCH (05:39)
[2018-04-18 08:09] VITALS: BP 116/58
[2018-04-18] MEDS: HYDROCODONE/APAP 5MG-325MG TAB PO PRN (08:26)
[2018-04-18] MEDS: ASPIRIN 325 MG TAB PO SCH (08:31)
[2018-04-18] MEDS: CELECOXIB 100 MG CAP PO SCH (08:31)
[2018-04-18] MEDS: IRON-VITAMIN-MINERAL CAPSULE PO SCH (08:31)
[2018-04-18] MEDS: SENNOSIDES 8.6 MG TAB PO SCH (08:31)
[2018-04-18] MEDS: INSULIN LISPRO 100 UNIT/1 ML 3ML VIAL SQ SCH ×2 (10:10→12:25)
[2018-04-18 10:35] VITALS: BP 116/58
[2018-04-18 12:15] VITALS: BP 97/53
[2018-04-18] MEDS ORDERED: COLACE100 MG PO (14:14)
[2018-04-18] MEDS ORDERED: XARELTO10 MG PO (14:15)
[2018-04-18] MEDS ORDERED: NORCO 5-325 TA1 EACH PO (14:17)
[2018-04-18] MEDS ORDERED: CELECOXIB 200 MG CAP PO SCH (17:00)
--- NOTE | 2018-04-19 12:51 | Discharge Summary ---
SKIMMER REVERBERATORY: Dr. Warren Mcknight. PRIMARY CARE PHYSICIAN: John Argueta M.D. FINAL DIAGNOSES: 1. Status post fall with intertrochanteric fracture of the left femur. 2. Status post left hip open reduction and internal fixation done by Dr. Warren Mcknight. Procedure day was April 15, 2018. 3. Anemia secondary to surgery and stress. SUMMARY: A 72-year-old female, who accidently fell at home. The patient suffered IT fracture of the left femur area. The patient underwent ORIF of the left hip on April 15, 2018. She did well on the procedures. No complication. She is slightly anemic. Hemoglobin and hematocrit of 9 and 27.8. The patient is otherwise stable. Blood pressure remained low without medication. Nifedipine has been discontinued. The patient is otherwise stable. Discharged home. She will take [place] as needed for pain. She will take the Xarelto 10 mg once a day for 10 days for DVT prophylaxis. The patient will also take Hemocyte Plus 1 table twice a day along with that some Colace for stool softener. The patient is otherwise stable. She will hold off on her nifedipine until her blood pressure improve. Otherwise, the patient can resume other home medication. The patient is stable and discharged home today. MD CALIN Calhoun/KATEY /[id number]
== END 2018-04-18 16:06 | disposition home health service (06) | DRG 481 ==
LOC: ER 09:06 → ERHOLD 13:18 → MED/SURG3 16:59 → MED/SURG 17:22
PROVIDERS: ADMIT Internal Medicine; ATTEND Internal Medicine
PROC: 0QS736Z Reposition Left Upper Femur with Intramedullary Internal Fixation Device, Percutaneous Approach (ICD-10-PCS; principal; 2018-04-15 13:00)
DX: S72.142A Displaced intertrochanteric fracture of left femur, initial encounter for closed fracture (principal); E87.1 Hypo-osmolality and hyponatremia; W01.0XXA Fall on same level from slipping, tripping and stumbling without subsequent striking against object, initial encounter; E03.9 Hypothyroidism, unspecified; E78.5 Hyperlipidemia, unspecified; E11.65 Type 2 diabetes mellitus with hyperglycemia; D64.9 Anemia, unspecified; I10 Essential (primary) hypertension; Y92.002 Bathroom of unspecified non-institutional (private) residence as the place of occurrence of the external cause; Z79.01 Long term (current) use of anticoagulants; Z79.84 Long term (current) use of oral hypoglycemic drugs; Z88.8 Allergy status to other drugs, medicaments and biological substances
CPT/HCPCS: 36415; 70450; 71045; 72125; 76000; 80048; 80053; 81001; 82550; 82553; 82948; 83735; 84484; 85014; 85018; 85025; 85610; 85730; 86850; 86900; 93005; 97139; 99284; C1713; J0690; J1100; J2001; J2270; J2405; J7030

== ENCOUNTER 2022-04-30 08:12 | Emergency (ER) | payer MEDICARE ==
[~2022-04-30] VITALS: Ht 160 cm; Wt 71.2 kg
[~2022-04-30 08:12] MED LIST changes: +COLACE100 MG PO; +NIFEDIPINE ER30 MG PO; +NORCO 5-325 TA1 EACH PO; +XARELTO10 MG PO
[2022-04-30] MEDS ORDERED: DOXYCYCLINE HY100 MG PO (08:28)
== END 2022-04-30 08:53 | disposition home or self-care (01) ==
LOC: ER 08:20
DX: L02.416 Cutaneous abscess of left lower limb (principal); I10 Essential (primary) hypertension; E11.9 Type 2 diabetes mellitus without complications; E78.5 Hyperlipidemia, unspecified; E03.9 Hypothyroidism, unspecified; Z87.19 Personal history of other diseases of the digestive system
CPT/HCPCS: 99283

== ENCOUNTER 2024-10-05 14:17 | Emergency (ER) | payer MEDICARE ==
[~2024-10-05] VITALS: Ht 154.9 cm; Wt 53.5 kg
[~2024-10-05 14:17] MED LIST changes: +DOXYCYCLINE HY100 MG PO
[2024-10-05 17:44] VITALS: PULSE 81; RESP 16; TEMP 97.8; O2SAT 100
== END 2024-10-05 17:45 | disposition home or self-care (01) ==
LOC: ER 14:36
DX: R10.32 Left lower quadrant pain (principal); W01.0XXA Fall on same level from slipping, tripping and stumbling without subsequent striking against object, initial encounter; Y92.89 Other specified places as the place of occurrence of the external cause; I10 Essential (primary) hypertension; E11.9 Type 2 diabetes mellitus without complications; E78.5 Hyperlipidemia, unspecified; E03.9 Hypothyroidism, unspecified; L40.9 Psoriasis, unspecified; Z87.19 Personal history of other diseases of the digestive system
CPT/HCPCS: 70450; 72125; 72192; 99283